=== PATIENT | male | born 1950 | race Caucasian/White ===

== ENCOUNTER 2017-02-19 08:12 | Day surgery (SDC) | payer OTHER, BC ==
[2017-02-18 14:16] VITALS: BMI 27.8
[2017-02-19 08:41] VITALS: TEMP 97.8
[2017-02-19] MEDS ORDERED: PROPOFOL 20 ML ONE ×5 (09:11)
[2017-02-19] MEDS ORDERED: LIDOCAINE HCL 2% (20ML MULTI-DOSE VIAL) NR ONE (09:11)
[2017-02-19 11:07] VITALS: BP 131/79; PULSE 77
--- NOTE | 2017-02-20 11:25 | PATH ---
Surgical Pathology Report Patient Name: NEO DANIELSON [facility]. Rec. #: [id number] /Age/Gender: 1950 (Age: 66) / M Account: [id number] Location: [facility]-ENDOSCOPY Taken: 02/19/2017 Received: 02/19/2017 Reported: 02/20/2017 Physicians: Errol Carrillo M.D. Specimen(s) Received A: BX STOMACH B: BX WILLAMS'S ESOPHAGUS 40 CM Clinical History Barretts esophagus Willams's esophagus, rule out intestinal metaplasia Final Diagnosis A. STOMACH, BIOPSY: MILD CHRONIC GASTRITIS WITH HYPERPLASTIC CHANGES AND FOCAL INTESTINAL METAPLASIA. NO DYSPLASIA IDENTIFIED. IMMUNOSTAIN FOR H. PYLORI IS NEGATIVE. B. ESOPHAGUS, 40 CM, BIOPSY: SQUAMOUS MUCOSA WITH PAPILLOMATOSIS SUGGESTIVE OF REFLUX ESOPHAGITIS. NO INTESTINAL METAPLASIA IDENTIFIED (NO WILLAMS'S IDENTIFIED). Electronically Signed Dl Calvin M.D. Gross Description A. Received in formalin, labeled "biopsy stomach" are 2 headley, irregular portions of soft tissue averaging 0.3 cm. in greatest dimension. The specimens are submitted in toto in one cassette. B. Received in formalin, labeled "biopsy Willams's esophagus 40 cm" are 2 headley, irregular portions of soft tissue measuring 0.2 and 0.4 cm. in greatest dimension. The specimens are submitted in toto in one cassette. 02/19/201702/19/2017
== END 2017-02-19 11:07 | disposition home or self-care (01) ==
LOC: JASU-ENDO 08:12
PROVIDERS: ATTEND Internal Medicine Gastroenterology
PROC: 0DB48ZX Excision of Esophagogastric Junction, Via Natural or Artificial Opening Endoscopic, Diagnostic (ICD-10-PCS; 2017-02-19)
PROC: 0DB68ZX Excision of Stomach, Via Natural or Artificial Opening Endoscopic, Diagnostic (ICD-10-PCS; principal; 2017-02-19 09:00)
DX: K22.70 Barrett's esophagus without dysplasia (principal); K29.60 Other gastritis without bleeding
CPT/HCPCS: 88305-TC; 88342-TC

== ENCOUNTER 2017-05-10 09:32 | Day surgery (SDC) | payer OTHER, BC ==
[2017-05-09 09:40] VITALS: BMI 27.1
[2017-05-10] MEDS ORDERED: LIDOCAINE HCL/PF 2% SDV 5ML VIAL ONE (10:47)
[2017-05-10] MEDS ORDERED: PROPOFOL 20 ML ONE ×5 (10:48)
[2017-05-10 11:33] VITALS: TEMP 97.5
[2017-05-10 12:09] VITALS: BP 127/73; PULSE 72
--- NOTE | 2017-05-13 13:35 | PATH ---
Surgical Pathology Report Patient Name: NEO DANIELSON [facility]. Rec. #: [id number] /Age/Gender: 1950 (Age: 67) / M Account: [id number] Location: [facility]-ENDOSCOPY Taken: 05/10/2017 Received: 05/10/2017 Reported: 05/13/2017 Physicians: Errol Carrillo M.D. Specimen(s) Received A: BX DESCENDING COLON POLYPS B: BX SIGMOID POLYP Clinical History Adenomatous polyp of the colon Diverticulosis, colon polyps (descending and sigmoid colon); grade 2 hemorrhoids Final Diagnosis A. COLON, DESCENDING, POLYPS, BIOPSY: TUBULAR ADENOMA. ADDITIONAL FRAGMENT OF COLONIC MUCOSA WITH FOCAL HYPERPLASTIC SURFACE CHANGE B. COLON, SIGMOID, POLYP, BIOPSY: FRAGMENTS OF HYPERPLASTIC POLYP. Electronically Signed Hari Mendoza M.D. Gross Description A. Received in formalin, labeled "biopsy descending colon polyps" are 2 headley, irregular portions of soft tissue averaging 0.2 cm in greatest dimension. The specimens are submitted in toto in one cassette. B. Received in formalin, labeled "biopsy sigmoid polyp" are 2 headley, irregular portions of soft tissue measuring 0.1 and 0.2 cm in greatest dimension. The specimens are submitted in toto in one cassette. 05/10/201705/10/2017
== END 2017-05-10 12:27 | disposition home or self-care (01) ==
LOC: JASU-ENDO 09:32
PROVIDERS: ATTEND Internal Medicine Gastroenterology
PROC: 0DBN8ZX Excision of Sigmoid Colon, Via Natural or Artificial Opening Endoscopic, Diagnostic (ICD-10-PCS; 2017-05-10)
PROC: 0DBM8ZX Excision of Descending Colon, Via Natural or Artificial Opening Endoscopic, Diagnostic (ICD-10-PCS; principal; 2017-05-10 10:30)
DX: Z12.11 Encounter for screening for malignant neoplasm of colon (principal); Z86.010 Personal history of colon polyps; D12.4 Benign neoplasm of descending colon; D12.5 Benign neoplasm of sigmoid colon; K57.30 Diverticulosis of large intestine without perforation or abscess without bleeding; D17.79 Benign lipomatous neoplasm of other sites; K64.8 Other hemorrhoids
CPT/HCPCS: 88305-TC